=== PATIENT | female | born 1960 | race Caucasian/White ===

== ENCOUNTER → 2024-10-03 | Day surgery (SDC) | payer MEDICARE ==
[~2024-10-03] MED LIST: AMBIEN10 MG PO; AMOX-CLAV; ASPIRIN81 MG PO; AUGMENTIN 500-1 EACH PO; BENZONATATE100 MG PO; BIOTIN SL; CLONIDINE HCL0.1 MG PO; CRESTOR40 MG PO; CYCLOBENZAPRINE10 MG PO; FEMARA2.5 MG PO; FENTANYL CITRATE/PF 100MCG/2 ML INJ ONE; GABAPENTIN400 MG PO; HYOSCYAMINE SULFATE 0.5 MG/ML INJ ONE; L-THYROXINE PO; LACTATED RINGER'S 1,000 ML ONE; LIDOCAINE HCL 2% LOCAL INJ 5 ML SDV VIAL INJ ONE; LOSARTAN-HCTZ1 EACH PO; MELATONIN3 MG SL; MELOXICAM7.5 MG PO; METFORMIN HCL500 M2 PO; METOPROLOL TART25 MG PO; MUPIROCIN22 GM TOP; NYSTATIN15 GM TOP; NYSTOP60 GM TOP; ONDANSETRON ODT4 MG PO; OZEMPIC0.25 MG/02 SQ; PROPOFOL IV EMULSION 10 MG/ML 20 ML VIAL ONE; PROPOFOL IV EMULSION 50 ML IV ONE; RANOLAZINE ER500 MG PO; SERTRALINE HCL100 MG PO; VALACYCLOVIR500 MG PO; VITAMIN B-121000 MC1 PO; WELLBUTRIN XL150 MG PO; WELLBUTRIN XL300 MG PO; [UNRECOGNIZED DRUG - OTHER]; [UNRECOGNIZED DRUG - OTHER] PO; [UNRECOGNIZED DRUG - OTHER] PO; [UNRECOGNIZED DRUG - OTHER] TOP; [UNRECOGNIZED DRUG - OTHER] TOP
[2024-10-03 09:55] VITALS: TEMP 97
[2024-10-03 10:25] VITALS: BP 144/80; PULSE 65; RESP 13; O2SAT 98
== END | disposition home or self-care (01) ==
LOC: OR 06:52
PROVIDERS: ATTEND Internal Medicine Gastroenterology
DX: K22.2 Esophageal obstruction (principal); K29.50 Unspecified chronic gastritis without bleeding; K44.0 Diaphragmatic hernia with obstruction, without gangrene; K21.9 Gastro-esophageal reflux disease without esophagitis; K64.1 Second degree hemorrhoids; Z98.84 Bariatric surgery status; G47.33 Obstructive sleep apnea (adult) (pediatric); E11.9 Type 2 diabetes mellitus without complications; I10 Essential (primary) hypertension; E66.01 Morbid (severe) obesity due to excess calories; E03.9 Hypothyroidism, unspecified; R32 Unspecified urinary incontinence; F41.9 Anxiety disorder, unspecified; F32.A Depression, unspecified; F17.290 Nicotine dependence, other tobacco product, uncomplicated; Z88.1 Allergy status to other antibiotic agents; Z88.8 Allergy status to other drugs, medicaments and biological substances; Z91.018 Allergy to other foods; Z91.048 Other nonmedicinal substance allergy status; Z01.810 Encounter for preprocedural cardiovascular examination; Z79.84 Long term (current) use of oral hypoglycemic drugs; Z79.82 Long term (current) use of aspirin; Z79.1 Long term (current) use of non-steroidal anti-inflammatories (NSAID); Z79.899 Other long term (current) drug therapy; Z68.27 Body mass index [BMI] 27.0-27.9, adult; Z85.3 Personal history of malignant neoplasm of breast; Z85.42 Personal history of malignant neoplasm of other parts of uterus; Z80.0 Family history of malignant neoplasm of digestive organs
CPT/HCPCS: 36415; 43239; 43249; 45378; 82948; 88305; 93005; J2003; J2704 ×2; J3010; J7121; 43233; J1980